=== PATIENT | female | born 1980 | race Native Hawaiian/Other Pacific Islander ===

== ENCOUNTER 2017-04-27 10:37 | Outpatient (CLI) | payer BC | END 2017-04-27 19:19 | disposition home or self-care (01) | LOC: RAD 10:37 | DX: M71.58 Other bursitis, not elsewhere classified, other site (principal) ==

== ENCOUNTER 2019-02-15 13:58 | Outpatient (CLI) | payer BC | END 2019-02-15 19:42 | disposition home or self-care (01) | LOC: MAMMO 13:58 | DX: Z12.31 Encounter for screening mammogram for malignant neoplasm of breast (principal) ==

== ENCOUNTER 2019-02-24 10:37 | Outpatient (CLI) | payer BC | END 2019-02-24 20:17 | disposition home or self-care (01) | LOC: US 10:37 | DX: R92.8 Other abnormal and inconclusive findings on diagnostic imaging of breast (principal) ==

== ENCOUNTER 2020-10-29 13:29 | Outpatient (CLI) | payer BC | END 2020-10-29 19:14 | disposition home or self-care (01) | LOC: MAMMO 13:29 | PROVIDERS: ATTEND Internal Medicine | DX: Z12.31 Encounter for screening mammogram for malignant neoplasm of breast (principal) ==